=== PATIENT | female | born 1970 | race Caucasian/White ===

== ENCOUNTER → 2018-01-12 | Outpatient (CLI) | payer BC ==
[2014-03-10 08:55] VITALS: BP 126/77
--- NOTE | 2018-01-12 10:55 | VAS ---
Examination: Carotid duplex Doppler ultrasound Clinical History: Neck pain, dizziness, unsteady gait. Technique: Duplex Doppler ultrasound utilizing soares scale imaging and spectral analysis with color/du plex imaging was used to evaluate the carotid systems bilaterally. Comparison: None available. Findings: Minimal atheromatous plaque formation is noted in the carotid systems bilaterally. The following peak systolic velocity measurements were made in cm/s. Right Left Proximal CCA 52.3 52.1 Mid CCA 53.3 64.2 Distal CCA 59.1 49.5 Proximal ICA 72.0 59.5 Mid ICA 72.2 73.0 Distal ICA 91.3 86.2 ECA 52.9 62.5 Vertebral 38.8 38.5 ICA/CCA ratio 1.71 1.34 Peak systolic velocities in the common carotid, internal carotid and external carotid arteries, are w ithin normal limits bilaterally, with no sonographic evidence of a hemodynamically significant stenos is in the carotid systems bilaterally. Normal antegrade flow is demonstrated in the vertebral arteries bilaterally. Impression: 1. There is no sonographic evidence of a hemodynamically significant stenosis in the carotid systems bilaterally. Degree of carotid narrowing is less than 50% by velocity criteria bilaterally. Reported By:
== END ==
LOC: RAD 09:46
PROVIDERS: ATTEND Internal Medicine Cardiovascular Disease
DX: M54.2 Cervicalgia (principal)
CPT/HCPCS: 93880

== ENCOUNTER → 2018-01-18 | Outpatient (CLI) | payer BC ==
[2014-03-10 08:55] VITALS: BP 126/77
== END ==
LOC: RAD 14:22
PROVIDERS: ATTEND Internal Medicine Cardiovascular Disease
DX: R07.9 Chest pain, unspecified (principal)
CPT/HCPCS: 93306